=== PATIENT | male | born 1980 | race Caucasian/White ===

== ENCOUNTER 2016-09-08 19:27 | Emergency (ER) | payer OTHER ==
[~2016-09-08] VITALS: Ht 175.3 cm; Wt 81.6 kg
[2016-09-08] MEDS ORDERED: HYDR-3713 PO (20:44)
[2016-09-08] MEDS ORDERED: MOBI7.5T10 PO (20:44)
[2016-09-08] MEDS ORDERED: NORCO 5/325MG TABLET (BULK FOR ED) PO ONE (20:45)
[2016-09-08 20:51] VITALS: BP 140/96
== END 2016-09-08 21:01 | disposition home or self-care (01) ==
LOC: M ED 20:34
DX: M19.011 Primary osteoarthritis, right shoulder (principal); M19.012 Primary osteoarthritis, left shoulder; Z98.890 Other specified postprocedural states; Z79.899 Other long term (current) drug therapy

== ENCOUNTER 2017-04-13 22:09 | Emergency (ER) | payer OTHER ==
[~2017-04-13] VITALS: Ht 175.3 cm; Wt 79.5 kg
[2017-04-13 22:09] VITALS: BP 158/97
[~2017-04-13 22:09] MED LIST: HYDR-3713 PO; MOBI4TAB PO
[2017-04-13] MEDS ORDERED: NAPR500T3 PO (22:17)
[2017-04-13] MEDS ORDERED: IMIT20SP (22:18)
[2017-04-13] MEDS ORDERED: SUMA20SP (22:18)
== END 2017-04-14 01:46 | disposition left against medical advice (07) ==
LOC: M ED 22:09
DX: Z53.21 Procedure and treatment not carried out due to patient leaving prior to being seen by health care provider (principal)

== ENCOUNTER 2017-05-27 07:41 | Day surgery (SDC) | payer OTHER ==
[2017-05-27] MEDS: NS 1,000 ML IV (07:45)
[2017-05-27] MEDS ORDERED: PROPOFOL 200 MG/20 ML VIAL As Ordered (08:01)
== END 2017-05-27 09:55 | disposition home or self-care (01) ==
LOC: M OPP 07:41
DX: K92.1 Melena (principal); K64.8 Other hemorrhoids; K64.1 Second degree hemorrhoids; M19.90 Unspecified osteoarthritis, unspecified site; G47.30 Sleep apnea, unspecified; R06.83 Snoring; Z79.899 Other long term (current) drug therapy; Z98.890 Other specified postprocedural states
CPT/HCPCS: 45378